=== PATIENT | male | born 1960 | race Caucasian/White ===

== ENCOUNTER 2020-04-11 10:32 | Inpatient (IN) | payer OTHER ==
[~2020-04-11] VITALS: Ht 175.3 cm; Wt 95.1 kg
[2020-04-11] VITALS (7 sets, daily range): BP systolic 105–123; BP diastolic 56–87; BMI 31.4
[2020-04-11] MEDS ORDERED: COZAAR50 MG PO (10:38)
[2020-04-11] MEDS ORDERED: SYNTHROID50 MCG PO (10:38)
[2020-04-11] MEDS ORDERED: ULORIC40 MG PO (10:39)
[2020-04-11] MEDS ORDERED: BACTRIM DS TAB1 EAC1 PO (10:40)
[2020-04-11] MEDS ORDERED: BUSPAR5 MG PO (10:45)
[2020-04-11] MEDS ORDERED: CARDURA4 MG PO (10:46)
[2020-04-11] MEDS ORDERED: OMEPRAZOLE20 M1 PO (10:46)
[2020-04-11] MEDS ORDERED: CLARITIN 10 MG10 MG PO (10:46)
[2020-04-11] MEDS ORDERED: TRAZODONE HCL150 MG PO (10:47)
[2020-04-11] MEDS ORDERED: XANAX0.25 MG PO (10:47)
[2020-04-11] MEDS ORDERED: SYNTHROID88 MCG PO (10:48)
[2020-04-11 11:32] LABS: BASOPHILS 0.6 % (0-2); EOSINOPHILS 0 % (0-7); HEMATOCRIT 38.4 % (42.0-54.0); HEMOGLOBIN 13.4 g/dL (13.5-17.5); IMMATURE GRANULOCYTES 0.8 % (0-5); LYMPHOCYTES 7.7 % (15-50); MCH 31.2 pg (26.0-34.0); MCHC 34.9 g/dL (31.0-37.0); MCV 89.5 fL (80.0-100.0); MEAN PLATELET VOLUME 11.4 fL (7.4-10.4); MONOCYTES 3.9 % (2-11); PLATELET COUNT 119 10x3/uL (130-400); RBC 4.29 10x6/uL (4.20-6.10); RDW 12.9 % (11.5-14.5); WBC 10.7 10x3/uL (4.8-10.8)
[2020-04-11 11:44] LABS: ANION GAP 12.6 mmol/L (8-16); CALCIUM 8.3 mg/dL (8.5-10.1); CARBON DIOXIDE 25.5 mmol/L (21.0-32.0); POTASSIUM - SERUM 3.1 mmol/L (3.5-5.1)
[2020-04-11 11:50] LABS: BILIRUBIN - TOTAL 0.6 mg/dL (0.2-1.3); PROTEIN - SERUM 6.5 g/dL (6.4-8.2)
[2020-04-11 12:32] LABS: APTT 34.2 SECONDS (22.8-39.4); PROTIME 13.1 SECONDS (11.6-15.0)
[2020-04-11 12:52] LABS: CKMB 2.6 U/L (0.0-3.6); CREATINE KINASE 638 UL (21-232); TROPONIN-I 0.029 ng/mL (0.000-0.060)
[2020-04-11 13:48] LABS: BILIRUBIN NEGATIVE (NEGATIVE); GLUCOSE NEGATIVE (NEGATIVE); KETONE NEGATIVE (NEGATIVE); NITRITE NEGATIVE (NEGATIVE); SPECIFIC GRAVITY 1.015 (1.005-1.020)
[2020-04-11 13:49] LABS: BACTERIA MODERATE /hpf (NEGATIVE); EPITHELIAL CELLS 0-5 /hpf (0-5); GRANULAR CAST OCC /lpf (NONE SEEN); HYALINE CAST 0-5 /lpf (NONE SEEN); RED CELLS - URINE 0-5 /hpf (0-5); WHITE CELLS - URINE 0-5 /hpf (NEGATIVE)
--- NOTE | 2020-04-11 15:00 | NUR ---
ADMIT TO ICU. ASSESSMENT PER ADMISSION ASSESSMENT. VSS.
--- NOTE | 2020-04-11 18:25 | NUR ---
PT UP URINATED IN FLOOR. LINENS CHANGED PT CHANGED. TEMP 104. O2 SAT [address] DHALIWAL NOTIFIED. [address] DELCID CONSULTED. 1899 NEW ORDERS PLACED IN COMPUTER. ABGS CALLED TO DR DELCID. PT VOICES NO CO AT TIME.
[2020-04-11 20:22] LABS: HEMATOCRIT 33.9 % (42.0-54.0); HEMOGLOBIN 11.9 g/dL (13.5-17.5); MCH 31.3 pg (26.0-34.0); MCHC 35.1 g/dL (31.0-37.0); MCV 89.2 fL (80.0-100.0); MEAN PLATELET VOLUME 11.2 fL (7.4-10.4); PLATELET COUNT 100 10x3/uL (130-400); RDW 12.8 % (11.5-14.5); WBC 9.6 10x3/uL (4.8-10.8)
[2020-04-11 21:04] LABS: LYMPHOCYTES 1 % (15-50); MONOCYTES 3 % (2-11); NEUTROPHILS 85 % (40-80); PLATELET ESTIMATE DECREASED
--- NOTE | 2020-04-11 21:06 | NUR ---
PATIENT RESTING. ON BIPAP. SPO 2 IS 98 AT THIS TIME. TEMPERATURE DROPPED TO 99.5 WITH ICEPACKS THAT I APPLIED AT SHIFT CHANGE. NO ACUTE DISTRESS AT THIS TIME. DR DELCID DID STATE HE COULD HAVE ICE CHIPS AND OCCASSIONAL WATER SIPS BUT THAT IS IT. HEL BUSPAR SINCE PATIENT WAS ALREADY DROWSY AND SHORT OF BREATH. OCHOA INSERTED AT THIS TIME. WILL CONTINUE TO MONITOR.
--- NOTE | 2020-04-11 23:00 | NUR ---
spoke with family on phone
[2020-04-12] VITALS (24 sets, daily range): BP systolic 107–136; BP diastolic 61–99; Ht 175.3 cm; Wt 95.1 kg
--- NOTE | 2020-04-12 01:35 | NUR ---
patient resting. more confused. takes off bp and heart electrodes. attempts to take off mask but is reoriented.
--- NOTE | 2020-04-12 03:00 | NUR ---
spoke with family on phone
--- NOTE | 2020-04-12 04:53 | NUR ---
patient trying to pull at catheter. confused. tries to get out of bed. reoriented easily.
--- NOTE | 2020-04-12 04:59 | NUR ---
spoke with nathen. simeon patient 3 times and could not get access. they stated they would be over to take care of it.
--- NOTE | 2020-04-12 06:19 | NUR ---
spoke with family on phone
--- NOTE | 2020-04-12 07:00 | NUR ---
ASSESSMENT COMPLETE PER FLOWSHEET. BIPAP ON FIO2 50 PERCENT. PULLING AT MASK AND OCHOA INSTRUCT MUST STOP. IN ISOLATION FOR PUI.
[2020-04-12 07:40] LABS: HEMATOCRIT 34.9 % (42.0-54.0); MCH 30.8 pg (26.0-34.0); MCHC 34.4 g/dL (31.0-37.0); MCV 89.7 fL (80.0-100.0); MEAN PLATELET VOLUME 11.7 fL (7.4-10.4); PLATELET COUNT 112 10x3/uL (130-400); RBC 3.89 10x6/uL (4.20-6.10); RDW 13.1 % (11.5-14.5); WBC 10.2 10x3/uL (4.8-10.8)
[2020-04-12 07:46] LABS: INR 1.01 (0.85-1.17); PROTIME 13.3 SECONDS (11.6-15.0)
[2020-04-12 07:47] LABS: APTT 36.2 SECONDS (22.8-39.4)
[2020-04-12 07:50] LABS: D-DIMER-QUANTITATIVE 2.93 ug/mLFEU (0.20-0.54)
[2020-04-12 07:55] LABS: % SATURATION 14 % (15-55); IRON 26 ug/dl (35-150); TOTAL IRON BIND CAPACITY 181 ug/dl (260-445); UNSAT IRON BIND CAPACITY 155 ug/dl (150-375)
[2020-04-12 08:13] LABS: LYMPHOCYTES 5 % (15-50); NEUTROPHILS 89 % (40-80)
[2020-04-12 08:14] LABS: PLATELET ESTIMATE NORMAL
[2020-04-12 08:33] LABS: ALBUMIN 2.5 g/dL (3.4-5.0); BILIRUBIN - TOTAL 0.64 mg/dL (0.2-1.3); CALCIUM 7.7 mg/dL (8.5-10.1); CARBON DIOXIDE 24.4 mmol/L (21.0-32.0); CREATININE - SERUM 1.3 mg/dL (0.6-1.3); MAGNESIUM - SERUM 2.9 mg/dL (1.8-2.4); POTASSIUM - SERUM 3.4 mmol/L (3.5-5.1); PROTEIN - SERUM 5.9 g/dL (6.4-8.2)
--- NOTE | 2020-04-12 13:00 | NUR ---
SLEEPIN NO DISTRESS NOTED. O2 ON AT 5 LITER.
--- NOTE | 2020-04-12 14:15 | NUR ---
PT CONTINUES TO BE CONFUSED PULLING AT ALL LINES. TAKING O2 OFF. RESTRAINTS PLACED.
--- NOTE | 2020-04-12 15:00 | NUR ---
OUT OF ISOLATION COVID 19 NEGATIVE.
--- NOTE | 2020-04-12 16:00 | NUR ---
AT THE BEDSIDE.
--- NOTE | 2020-04-12 18:21 | NUR ---
SLEEPING NO DISTRESS NOTED. O2 ON AT 5 LITERS.
--- NOTE | 2020-04-12 19:00 | NUR ---
BEDSIDE SHIFT REPORT COMPLETED, PT IS RESTRAINED, NASAL CANNULA AT 6L - AFEBRILE, VSS CPOC
--- NOTE | 2020-04-12 19:35 | NUR ---
FULL SHIFT ASSESSMENT COMPLETED, PATIENT SPEECH IS GARBLED, HE IS ABLE TO ANSWER ORIENTATION QUESTIONS, EYES PERRL 3 AND BRISK. PATIENT CAN FOLLOW COMMANDS BILATERAL LUMBER HANDLER STRENGTH EVEN AND EQUAL. PATIENT SMILE IS EVEN. HE HAS AN OCCASIONAL RIGHT SHOULDER "JERK". HE DENIES PAIN AND NEEDS AT THIS TIME. SEE FLOWSHEET FOR FULL ASSESSMENT.
--- NOTE | 2020-04-12 19:55 | NUR ---
BHASKAR CUMMINGS RECEIVED PER ELECTROLYTE REPLACEMENT PROTOCOL, SEE EMAR FOR ADMINISTRATION.
--- NOTE | 2020-04-12 20:47 | NUR ---
PT CALLED IN FOR PATIENT STATUS, PASSWORD GIVEN BY FAMILY MEMBER, ALL QUESTIONS ANSWERED
--- NOTE | 2020-04-12 21:15 | NUR ---
HS MEDICATIONS RECEIVED SEE MAR FOR ADMINISTRATION - PT DENIES NEEDS AT THIS TIME. REPOSITIONED FOR COMFORT
--- NOTE | 2020-04-12 22:39 | NUR ---
PATIENT SISTER CALLED IN AT THIS TIME AND PROVIDED PASSWORD FOR UPDATED INFORMATION ON PATIENT STATUS. UPDATE RECEIVED ALL QUESTIONS ANSWERED
--- NOTE | 2020-04-12 23:45 | NUR ---
REASSESSMENT COMPLETED, SPEECH GARBLED, ABLE TO ANSWER ORIENTATION QUESTIONS BUT RAMBLES INCOHERENTLY AFTER ANSWERING QUESTIONS. HE IS ORIENTATED X4. PATIENT IS HICCUPING FREQUENTLY. NO FURTHER CHANGES FROM INITIAL SHIFT ASSESSMENT, TEMP ELEVATED AT THIS TIME DOCUMENTED. CPOC
[2020-04-13] VITALS (14 sets, daily range): BP systolic 101–135; BP diastolic 67–85
--- NOTE | 2020-04-13 01:05 | NUR ---
PATIENT RESTING COMFORTABLY. EVEN RISE AND FALL OF CHEST. CALL LIGHT IN REACH. NO ACUTE CHANGES OR SIGNS OF DISTRESS. VSS CPOC
--- NOTE | 2020-04-13 03:30 | NUR ---
STAFF AT BEDSIDE FOR BILAT LE DOPPLER, PATIENT ANXIOUS AND CONFUSED TO TIME AND SITUATION.ATTEMPTING TO PULL ON MEDICAL EQUIPMENT. SUCCESFUL ATTEMPT AT REORIENTATION. PT CALMED AND DOPPLER STUDY CONTINUED. VSS CPOC
--- NOTE | 2020-04-13 05:45 | NUR ---
PATIENT RESTING COMFORTABLY, CPOC
[2020-04-13 06:10] LABS: HEPATITIS C ANTIBODY 0.4 (0.0-0.9)
[2020-04-13 06:17] LABS: HEMOGLOBIN 10.2 g/dL (13.5-17.5); MCH 30.9 pg (26.0-34.0); MCV 90.9 fL (80.0-100.0); MEAN PLATELET VOLUME 11.8 fL (7.4-10.4); RDW 13.4 % (11.5-14.5); WBC 9.1 10x3/uL (4.8-10.8)
[2020-04-13 06:18] LABS: PLATELET COUNT 159 10x3/uL (130-400)
[2020-04-13 06:51] LABS: LYMPHOCYTES 30 % (15-50); NEUTROPHILS 64 % (40-80); PLATELET ESTIMATE NORMAL
[2020-04-13 07:05] LABS: ALBUMIN 2.2 g/dL (3.4-5.0); ALKALINE PHOSPHATASE 63 U/L (30-120); BILIRUBIN - DIRECT 0.23 mg/dL (0.00-0.30); BILIRUBIN - INDIRECT 0.36 mg/dL (0.00-1.00); BILIRUBIN - TOTAL 0.59 mg/dL (0.2-1.3); CALC OSMOLALITY 272 mosm/kg (275-300); CALCIUM 7.3 mg/dL (8.5-10.1); CHLORIDE - SERUM 102 mmol/L (98-107); GLUCOSE 104 mg/dL (74-106); POTASSIUM - SERUM 3.5 mmol/L (3.5-5.1); PROTEIN - SERUM 5.3 g/dL (6.4-8.2); SODIUM 135 mmol/L (136-145); UREA NITROGEN 22 mg/dL (7-18)
[2020-04-13 07:06] LABS: ALT (SGPT) 98 U/L (10-68); CREATINE KINASE 400 UL (21-232); CREATININE - SERUM 0.9 mg/dL (0.6-1.3); eGFR NON AFRICAN AMERICAN > 90 mL/min (90-120)
[2020-04-13 07:07] LABS: CKMB 1.2 U/L (0.0-3.6)
--- NOTE | 2020-04-13 07:51 | NUR ---
SITTING UP IN BED AWAKE AT THIS TIME. VSS. NO ACUTE DISTRESS NOTED. CALL LIGHT IN REACH. WILL CONTINUE PLAN OF CARE.
--- NOTE | 2020-04-13 09:00 | NUR ---
NOT CURRENTLY ATTEMPTING TO PULL AT LINES OR TUBES. RESTRAINTS REMOVED AT THIS TIME. PT STATES UNDERSTANDING TO NOT PULL AT LINES OR TUBES AND STATES HE CAN TELL THAT HE HAD PREVIOUSLY BEEN MORE CONFUSED THAN NOW AND THAT HE WILL NOT ATTEMPT TO PULL AT LINES OR TUBES. VSS. WILL CONTINUE PLAN OF CARE.
--- NOTE | 2020-04-13 10:29 | NUR ---
PER DR DHALIWAL, TESS OCHOA AND TRANSFER PT TO FLOOR. PHYSICIAN ALSO STATED HE WOULD PLACE ORDER FOR PTS HICCUPS.
--- NOTE | 2020-04-13 10:34 | HP ---
PATIENT: JAMES VALDEZ MEDICAL RECORD: [id number] ACCOUNT: [id number] LOCATION:[id number] : 56 ADMISSION DATE: 04/11/20 PCP: ANDRES DHALIWAL MD HISTORY AND PHYSICAL EXAMINATION REASON FOR ADMISSION: Fever, general malaise, and poor appetite. HISTORY OF PRESENT ILLNESS: The patient is a 59-year-old male with history of essential hypertension, anxiety, GERD, and alcohol excess. He states he and his had eaten pizza at a local pizza established about a week ago. His and he both fell ill the day after. His recovered, but he continued to feel ill. He developed fever 101-102, as high as 104; general malaise; poor appetite. He denied any nausea, vomiting, change in stools, blood pressure, cough, or dysuria. He also denied abdominal pain. The patient states that he normally drinks 3 beers a day and 3 high balls a day but because of his illness had no appetite and did not drink for the last week. He has been more fatigued the last couple of days and lightheaded. He has not fainted. He came to office today and appeared ill. His pressure was 80/40 with a heart rate of 100. His creatinine was 2 with his baseline of 1. He was sent over to the ER for IV fluids and direct admission. He denies headache or recent tick bites. 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 PAST SURGICAL HISTORY: He has had left knee arthroscopy for meniscectomy. SOCIAL HISTORY: He lives with his spouse. He does not smoke. He does drink significantly as mentioned above. He has never had alcohol withdrawal. FAMILY HISTORY: Father had COPD and cancer of the prostate. Mother, hypertension, heart failure and she is as well. Father at 78. Mother also had macular degeneration. MEDICATIONS: Bactrim 1 p.o. b.i.d., Synthroid 88 mcg p.o. q.a.m., losartan 50 mg a day, Uloric 40 mg daily, BuSpar 5 mg t.i.d., Cardura 4 mg at bedtime, Prilosec 20 mg b.i.d., Claritin 10 mg a day, Desyrel 50 mg at bedtime for sleep, Xanax 0.25 mg b.i.d. p.r.n. anxiety. ALLERGIES: None mentioned. REVIEW OF SYSTEMS: CONSTITUTIONAL: Fatigue with poor appetite and malaise with fever for the last 7 days. HEENT: Denies headache, visual change, sinus congestion, sore throat, or hearing difficulty. RESPIRATORY: No SOB or cough. CARDIAC: No exertional rest chest pain, claudication, or edema. GASTROINTESTINAL: He has had some mild nausea, but no vomiting. He has had hiccups intermittently for the last several days. Denies change in stools, blood per rectum, or melena. ENDOCRINE: Denies polyuria, polydipsia, heat or cold intolerance. NEUROLOGIC: Denies headache, history of seizure or stroke. INTEGUMENT: No rash or itching. PSYCHIATRIC: Denies depressed mood. HISTORY AND PHYSICAL [id number] JAMES VALDEZ PHYSICAL EXAMINATION: VITAL SIGNS: Temperature is 98.6 Fahrenheit after taking Advil. Pulse 104 and regular, respirations were 20, blood pressure 111/67 after fluids, pulse ox is 97. GENERAL: The patient appears ill but is alert and oriented. HEENT: His eyes are clear. Oropharynx unremarkable. NECK: Supple. CHEST: Clear. HEART: Tachycardic without murmur. ABDOMEN: Obese, soft, nontender throughout. Bowel sounds are active. Liver not grossly enlarged. GENITOURINARY: Unremarkable. Prostate exam is deferred. EXTREMITIES: Trace bipedal edema. INTEGUMENT: No rash appreciated. No petechiae. NEUROLOGICAL: Oriented to person, place, and time. Cranial nerves intact. Gait was unsteady, but no motor deficits were appreciated. LABORATORY RESULTS: Urine is dark yellow to Coke colored and hazy, pH is 5, trace protein, trace blood, 0-5 red and white cells, moderate bacteria. White count is 10.7 with 87 polys, 7 lymphs; H&H are 13.4 and 38.4 respectively; platelet count is 119,000. INR is 1. BUN and creatinine are 29 and 2.0 with his baseline of 19 and 1; potassium is 3.1, which is low; sodium is 126, which is low; glucose 113; lactic acid is 2.5, elevated; bili is 0.6; AST is 146; ALT is 89; creatine kinase is 638; CPK-MB is 2.6. Troponin 0.29. Protein is low at 3. Amylase and lipase are pending. Chest x-ray is clear. ASSESSMENT: 1. Febrile illness, etiology unknown. 2. Hyponatremia. 3. Hypokalemia. 4. Alcohol excess and possible alcohol withdrawal. 5. History of hyperuricemia. 6. Hypertension, currently hypotensive. 7. Acute renal insufficiency. 8. Lactic acidosis. 9. Bacteriuria. PLAN: The patient will be admitted to the ICU because of risk for alcohol withdrawal. He has been placed on a banana bag, IV fluids, continuous blood pressure monitoring, and neuro checks. Potassium, sodium will be replaced IV. We will obtain an ultrasound of the abdomen. Due to bacteriuria, we will place on Rocephin. He has been cultured. COVID culture will be obtained as well. NTS:[id number] Voice Confirmation ID: [id number] DOCUMENT ID: [id number] HISTORY AND PHYSICAL [id number] JAMES VALDEZ TIMOTHY MD at 1034 CC: [id number] DICTATION DATE: 04/11/20 173 STRETCHER LEVELER OPERATOR HELPER: 04/11/20 2017 ADM IN [place] [id number] [place] [id number]
--- NOTE | 2020-04-13 11:38 | NUR ---
PER REINIER JAIN FOR PT TO TRANSFER TO FLOOR.
--- NOTE | 2020-04-13 12:16 | NUR ---
OCHOA DCD AT THIS TIME PER ORDERS, CATHETER TIP INTACT. URINAL PROVIDED TO PT. VSS. WILL CONTINUE PLAN OF CARE.
--- NOTE | 2020-04-13 12:32 | NUR ---
WILL ADMIN SCHEDULED THORAZINE WHEN RECIEVE FROM PHARMACY.
--- NOTE | 2020-04-13 14:50 | NUR ---
REPORT CALLED TO RECIEVING NURSE WHO STATED ROOM FOR PT TO GO TO IS STILL BEING CLEANED BUT SHOULD BE READY SHORTLY. WILL TRANSFER PT TO ROOM 2102 WHEN ROOM IS READY.
--- NOTE | 2020-04-13 15:50 | NUR ---
TRANSFERRED TO ROOM 2103 AT THIS TIME VIA BED WITH ALL PERSONAL ITEMS INCLUDING HOME CPAP. ACCOMPANIED BY HOSPITAL STAFF. VSS. NO ACUTE DISTRESS NOTED. NO FURTHER ACTIONS.
--- NOTE | 2020-04-13 19:19 | NUR ---
RECIEVED UP IN BED WITH SPOUSE AT BEDSIDE. ALERT AND ORIENTED WITH [id number] OF CONFUSION. WHEN ASKED A QUESTION BECOME FLUSTERED AND SPEECH BECOMES GARBLED. IV TO RT AC WITH VIT BAG INFUSING. STARTED IV TO RT HAND FOR ABT. UP AD YESSICA TO B/R. DENIES ANY NEEDS AT THIS TIME.
[2020-04-14 05:00] VITALS: BP 139/79
[2020-04-14 05:21] LABS: HEMATOCRIT 31.6 % (42.0-54.0); HEMOGLOBIN 10.9 g/dL (13.5-17.5); LYMPHOCYTES 49.6 % (15-50); MCH 31.7 pg (26.0-34.0); MCHC 34.5 g/dL (31.0-37.0); MCV 91.9 fL (80.0-100.0); MEAN PLATELET VOLUME 10.9 fL (7.4-10.4); NEUTROPHILS 38.9 % (40-80); PLATELET COUNT 172 10x3/uL (130-400); RBC 3.44 10x6/uL (4.20-6.10); RDW 13.8 % (11.5-14.5); WBC 9.1 10x3/uL (4.8-10.8)
[2020-04-14 06:07] LABS: CALC OSMOLALITY 269 mosm/kg (275-300); CALCIUM 7.5 mg/dL (8.5-10.1); CARBON DIOXIDE 22.2 mmol/L (21.0-32.0); CHLORIDE - SERUM 102 mmol/L (98-107); CREATININE - SERUM 0.7 mg/dL (0.6-1.3); GLUCOSE 99 mg/dL (74-106); MAGNESIUM - SERUM 2.9 mg/dL (1.8-2.4); POTASSIUM - SERUM 3.3 mmol/L (3.5-5.1); SODIUM 135 mmol/L (136-145); eGFR NON AFRICAN AMERICAN > 90 mL/min (90-120)
[2020-04-14 06:08] LABS: UREA NITROGEN 12 mg/dL (7-18)
[2020-04-14 10:06] VITALS: BP 143/78
[2020-04-14] MEDS ORDERED: VIBRAMYCIN 100100 MG PO (12:13)
--- NOTE | 2020-04-14 14:27 | NUR ---
PT ESCORTED OUT VIA WHEELCHIAR TO POV, DRIVING.
--- NOTE | 2020-04-14 17:12 | MORECARE ---
CASE MANAGEMENT DISCHARGE SUMMARY PATIENT: JAMES VALDEZ UNIT: [id number] ADM DATE: 04/11/20 AGE: 59 : 56 SEX: M ROOM/BED: D.2103 AUTHOR: ARNAUD SIMONS PHYSICIAN: REFERRING PHYSICIAN: ANDRES DHALIWAL MD DATE OF SERVICE: 04/14/20 Discharge Plan Patient Name: JAMES VALDEZ Facility: [facility]:[place] : 1960 Planned Disposition: Home Anticipated Discharge Date: 04/14/20 Discharge Date: 04/14/2020 Expected LOS: 3 Initial Reviewer: [email or web address] Initial Review Date: 04/14/2020 Generated: 04/14/20 6:11 pm Comments DCP- Discharge Planning Updated by [email or web address]: Katerin Meng on 04/14/20 4:[address] Patient Name: JAMES VALDEZ Admission Status: ER Accout number: [id number] Admission Date: 04-11-2020 : 1960 Admission Diagnosis: Attending: ANDRES DHALIWAL Current LOS: 3 Anticipated DC Date: 04-14-2020 Planned Disposition: Home Primary Insurance: [facility] Discharge Planning Comments: CM met with patient to complete initial dc planning assessment. CM educated patient on the CM role and verbal consent given by patient to complete assessment. Patient lives at home with family. Patient is independent. At discharge patient plans to return home and feels this is a safe discharge. CM discussed availability of home health, rehab services, and medical equipment. Patient will have family to transport home. Patient denied known discharge needs at this time. CM will continue to follow and will assist as needed with dc plans/needs. Textile Engineer: Katerin Meng DCPIA - Discharge Planning Initial Assessment Updated by [email or web address]: Katerin Meng on 04/14/20 5:09 pm * Is the patient Alert and Oriented? Yes * How many steps to enter\exit or inside your home? * PCP * [facility] * Preadmission Environment Home with Family * ADLs Independent * Equipment CPAP * List name and contact numbers for known caregivers / representatives who currently or will assist patient after discharge: LOULOU VALDEZ - [facility]- [phone] * Verbal permission to speak to the caregivers and representatives has been obtained from the patient. Yes * Community resources currently utilized None * Additional services required to return to the preadmission environment? No * Can the patient safely return to the preadmission environment? Yes * Has this patient been hospitalized within the prior 30 days at any hospital? No Patient Name: JAMES VALDEZ Page [id number] at 1712 All edits/amendments must be made on the electronic document DICTATION DATE: 04/14/201710 CHAIN HOOKER: CINDI 04/14/201710 RPT#: [id number] DC DATE:04/14/20 STATUS: DIS IN [facility] [address] [place] [address] END OF REPORT
--- NOTE | 2020-04-14 18:07 | MORECARE ---
CASE MANAGEMENT DISCHARGE SUMMARY PATIENT: JAMES VALDEZ UNIT: [id number] ADM DATE: 04/11/20 AGE: 59 : 56 SEX: M ROOM/BED: D.2103 AUTHOR: ARNAUD SIMONS PHYSICIAN: REFERRING PHYSICIAN: ANDRES DHALIWAL MD DATE OF SERVICE: 04/14/20 Discharge Plan Patient Name: JAMES VALDEZ Facility: [facility]:[place] : 1960 Planned Disposition: Home Anticipated Discharge Date: 04/14/20 Discharge Date: 04/14/2020 Expected LOS: 3 Initial Reviewer: [email or web address] Initial Review Date: 04/14/2020 Generated: 04/14/20 7:07 pm Comments DCP- Discharge Planning Updated by [email or web address]: Katerin Meng on 04/14/20 4:[address] Patient Name: JAMES VALDEZ Admission Status: ER Accout number: [id number] Admission Date: 04-11-2020 : 1960 Admission Diagnosis: Attending: ANDRES DHALIWAL Current LOS: 3 Anticipated DC Date: 04-14-2020 Planned Disposition: Home Primary Insurance: [facility] Discharge Planning Comments: CM met with patient to complete initial dc planning assessment. CM educated patient on the CM role and verbal consent given by patient to complete assessment. Patient lives at home with family. Patient is independent. At discharge patient plans to return home and feels this is a safe discharge. CM discussed availability of home health, rehab services, and medical equipment. Patient will have family to transport home. Patient denied known discharge needs at this time. CM will continue to follow and will assist as needed with dc plans/needs. Psychology Associate: Katerin Meng DCPIA - Discharge Planning Initial Assessment Updated by [id number]: Katerin Meng on 04/14/20 5:09 pm * Is the patient Alert and Oriented? Yes * How many steps to enter\exit or inside your home? * PCP * [facility]acy [facility] * Preadmission Environment Home with Family * ADLs Independent * Equipment CPAP * List name and contact numbers for known caregivers / representatives who currently or will assist patient after discharge: LOULOU VALDEZ - [facility]- [phone] * Verbal permission to speak to the caregivers and representatives has been obtained from the patient. Yes * Community resources currently utilized None * Additional services required to return to the preadmission environment? No * Can the patient safely return to the preadmission environment? Yes * Has this patient been hospitalized within the prior 30 days at any hospital? No Last DP export: 04/14/20 4:12 p Patient Name: JAMES VALDEZ Page [id number] at 1807 All edits/amendments must be made on the electronic document DICTATION DATE: 04/14/201806 ELECTRONIC FIELD SERVICE ENGINEER: CINDI 04/14/201806 RPT#: [id number] DC DATE:04/14/20 STATUS: DIS IN [facility] [address] [place] [address] END OF REPORT
[2020-04-15 14:07] LABS: PROCALCITONIN 0.95 ng/mL (0.00-0.08)
[2020-04-16 14:10] LABS: HGE IGG TITER Negative (Neg:<1:64); HGE IGM TITER Negative (Neg:<1:20)
[2020-04-16 16:10] LABS: RMSF IGM 0.24 index (0.00-0.89)
== END 2020-04-14 14:30 | disposition home or self-care (01) | DRG 871 ==
LOC: D.ER 10:32 → D.ICU 13:50 → D.M2 04-13 15:51
PROVIDERS: Family Medicine; Internal Medicine Pulmonary Disease; ADMIT Family Medicine; ATTEND Family Medicine
DX: A41.9 Sepsis, unspecified organism (principal); R65.21 Severe sepsis with septic shock; J96.01 Acute respiratory failure with hypoxia; N17.0 Acute kidney failure with tubular necrosis; G93.41 Metabolic encephalopathy; E87.1 Hypo-osmolality and hyponatremia; N39.0 Urinary tract infection, site not specified; E03.9 Hypothyroidism, unspecified; D50.9 Iron deficiency anemia, unspecified; N40.0 Benign prostatic hyperplasia without lower urinary tract symptoms; E87.6 Hypokalemia; K21.9 Gastro-esophageal reflux disease without esophagitis; D69.6 Thrombocytopenia, unspecified